=== PATIENT | male | born 1990 | race Caucasian/White ===

== ENCOUNTER 2024-07-22 08:25 | Emergency (ER) | payer SELFPAY ==
[2024-07-22 08:39] VITALS: BMI 28.0
--- NOTE | 2024-07-22 08:53 | ED.GENMED ---
History of Present Illness
General
Chief Complaint: Abdominal Pain
Source: patient
Exam Limitations: none
Time Seen by Provider: 07/22/24 08:33
Nursing documentation reviewed up to this point in time: agreed with
History of Present Illness
History of Present Illness:
Patient presents ED secondary to sudden onset of abdominal pain, associated with nausea and vomiting, which occurred while he was having bowel movement this morning. Denies fever or chills. Denies trauma. Denies recent illness. Patient was
evaluated at another ED 3 days ago for similar complaint, which also occurred during bowel movement. Patient reports having had blood work as well as normal CT scan abdomen pelvis. Patient did require receiving IV infusion of potassium, as it was
low. Patient states that he was symptom-free by the time he left ED. Since then, unfortunately, patient has not had any bowel movements. Patient takes Zoloft daily, which she has been for the past 2 years. Patient denies taking any other
medications. However, patient does admit to using marijuana, approximately twice weekly. Denies smoking. Patient admits to drinking alcohol socially.
Past History
Past History
ED Past Medical History: None
ED Past Surgical History: None
Social History
Tobacco: Non-smoker
Living: with family
Review of Systems
Review of Systems
Allergies reviewed?: Yes
All Other Systems: ROS reviewed and negative except as documented in HPI and ROS
Constitutional: Reports no symptoms; Denies fever
EENT: Reports no symptoms
Respiratory: Reports no symptoms
Cardiac: Reports no symptoms
ABD/GI: Reports abdominal pain, nausea and vomiting; Denies diarrhea
Musculoskeletal: Reports no symptoms
Skin: Reports no symptoms
Neurological: Reports no symptoms
Phy Exam
Physical Exam
Physical Exam:
Physical Exam
General: mild distress, not acutely ill. afebrile.
Head: nc/at. eomi
Neck: supple. no meningeal signs. normal posterior pharynx
Heart: s1/s2 regular rate and rhythm, no murmur.
Lungs: no acute respiratory distress. clear bilaterally
Abdomen: normal bowel sounds. not tender. no distention
Neuro: alert and oriented x 3. no focal neurological deficits
Skin: no rash
Psychiatric: well kept. interactive and cooperative
Extremities: no edema. no calf tenderness.
Course
Orders/Labs/Results
Orders:
Orders
07/22/24 08:40
HYDROmorphone [Dilaudid] 1 mg .ROUTE .STK-MED ONE
Ondansetron Injectable [Zofran] 4 mg .ROUTE .STK-MED ONE
07/22/24 08:44
EKG [Electrocardiogram (*1)] Urgent
Reason for Study: Vertigo / Dizzy
EKG- Treatment ONCE
07/22/24 08:47
Alcohol Urgent
Complete Blood Count/With Diff Urgent
Comprehensive Metabolic Panel Urgent
Lipase Urgent
Magnesium Urgent
07/22/24 08:49
0.9% Sodium Chloride 500 ml [Nss] 500 ml IV BOLUS
Haloperidol Lactate [Haldol] 2 mg IV NOW STA
Pantoprazole [Protonix IV] 40 mg IV NOW STA
07/22/24 08:51
Ondansetron Injectable [Zofran] 4 mg IV NOW STA
CR Obstruct Series W/pa Chest Urgent
Comment:
Reason For Exam: abd pain w vomiting
07/22/24 08:58
Add On- LAB Urgent
Tests Added?: alcohol level
07/22/24 09:08
Lorazepam [Ativan] 1 mg IV NOW STA
Abnormal Lab Results
07/22/24
08:47
Absolute Lymphs (auto) 1.0 L 10^3/uL
(1.2-3.4)
Neutrophils % 78.0 H %
(42.2-75.2)
Lymphocytes % 13.4 L %
(20.5-51.1)
Carbon Dioxide 19 L mmol/L
(22-30)
BUN 21 H mg/dl
(9-20)
Glucose 139 H mg/dl
(70-99)
Albumin 5.1 H g/dl
(3.5-5.0)
07/22/24 08:47
07/22/24 08:47
Vital Signs
Initial and Last Documented VS:
Initial Vital Signs
Temp Pulse Resp Pulse Ox
97.3 F 67 16 100
07/22/24 08:28 07/22/24 08:28 07/22/24 08:28 07/22/24 08:28
Last Documented Vital Signs
Temp Pulse Resp BP Pulse Ox
97.6 F 69 20 136/71 95
07/22/24 09:05 07/22/24 11:20 07/22/24 11:20 07/22/24 11:20 07/22/24 11:20
MDM/Problems Addressed
MDM/Problems Addressed:
Faxed report from recent ED visit reviewed and noted, including blood work and CT abdomen pelvis.
Patient reports significant improvement symptoms, and is without any further vomiting episodes after treatment. Repeat abdominal exam: Soft and nontender. Patient remains hemodynamically stable.
Discussed with patient in depth regarding potential diagnosis, including constipation, medication reaction, diet, as well as use of marijuana as potential etiology behind his symptoms. However, in light of patient's gastric ulcer history,
difficulty exclude gastritis versus esophagitis versus ulcer as etiology behind his symptoms. Advised PPI as an outpatient, stool softener, increase fiber intake, and patient will be referred to GI for an outpatient consultation. Advised to return
to ED with recurrent or worsening symptoms. Patient will be discharged home in stable condition, to the care of of his family.
Outpatient GI appt made for the patient on 07/25
*Critical Care Note
Total Time (30-74mins, 75-104mins- exclusive of procedures): Not Applicable
ED Attending Note
-
Portions of this chart may have been created with voice recognition software.� Occasional wrong word or��sound alike� substitutions may have occurred due to the inherent limitations of voice recognition software.
Discharge Plan
Departure
Patient Disposition: Home (Routine Discharge)
Date of Disposition: 07/22/24
Time of Disposition: 11:10
Patient with high blood pressure during this ER visit?: Yes
Condition: Good
Discharge Problem:
Abdominal pain
Instructions: Abdominal Pain
Prescriptions:
New
metoclopramide HCl [Reglan] 10 mg tablet
10 mg PO Q8HPRN PRN (Reason: nausea and vomiting) Qty: 10 0RF
No Action
escitalopram oxalate 10 mg Tablet
10 mg PO DAILY
Referrals:
Sylvester Lombardi MD [Family Provider] -
Yossi Deal MD [Active] -
Activity Restrictions/Additional Instructions:
As discussed, please follow-up with your primary care physician and/or referred GI physician for further evaluation and treatment. please consider return to ED with worsening symptoms, i.e. fever/worsening pain/vomiting. Your prescription has been
sent electronically to [facility] pharmacy in [place].
Interventions
Interventions:
*Risk Screen - Suicide Last Done: 07/22/24 08:28
*General Assessment Last Done: 07/22/24 08:28
*Neglect/Abuse Screening Last Done: 07/22/24 09:05
*ED- Fall Risk Assessment Last Done: 07/22/24 09:05
*ED COVID-19 Vaccine History Last Done: 07/22/24 09:05
*Nursing Disposition Last Done: 07/22/24 11:27
AR-Xvelsu-Sfvuibiwtl Assessment Last Done: 07/22/24 09:05
Discharge Date and Time
Discharge Date/Time: 07/22/24 11:28
Print Language: ROMANIAN
[2024-07-22] MEDS: NSS 500 IV (08:58)
[2024-07-22] MEDS: HALDOL 2 MG IV (08:58)
[2024-07-22] MEDS: PROTONIX IV 40 MG IV (08:58)
[2024-07-22 09:02] VITALS: BP 141/89
[2024-07-22 09:02] LABS: % Basophils 0.8 % (0-2); % Eosinophils 1.2 % (0-6); % Immature Granulocytes 0.3 % (0-0.5); % Lymphocytes 13.4 % (20.5-51.1); % Monocytes 6.3 % (1.7-9.3); Absolute Basophils 0.1 10^3/uL (0-0.2); Absolute Eosinophils 0.1 10^3/uL (0-0.7); Absolute Monocytes 0.5 10^3/uL (0.1-0.6); Absolute Neutrophils 6.1 10^3/uL (1.4-6.5); Hemoglobin 16.1 g/dL (13.0-18.0); Mean Corpuscular Hgb 29.9 pg (27.0-31.0); Mean Corpuscular Volume 85.3 fL (80.0-94.0); Mean Platelet Volume 10.2 fL (7.4-10.4); Nucleated Red Blood Cells % 0 % (-); Platelet Count 315 10^3/uL (130-400); Red Blood Cell Count 5.39 10^6/uL (4.70-6.10); White Blood Cell Count 7.8 10^3/uL (4.8-10.8)
[2024-07-22 09:05] VITALS: BP 141/89
--- NOTE | 2024-07-22 09:09 | EDRN ---
Dr. Soria currently at the pts bedside
[2024-07-22] MEDS: ATIVAN 1 MG IV (09:12)
[2024-07-22 09:26] LABS: ALT (SGPT) 36 U/L (0-50); AST (SGOT) 29 U/L (17-59); Albumin 5.1 g/dl (3.5-5.0); Alkaline Phosphatase 89 U/L (38-126); Blood Urea Nitrogen 21 mg/dl (9-20); Calcium 9.9 mg/dl (8.4-10.2); Carbon Dioxide 19 mmol/L (22-30); Chloride 107 mmol/L (98-107); Estimated Creatinine Clearance 96 ml/min; Glucose 139 mg/dl (70-99); Lipase 164 U/L (23-300); Magnesium 1.9 mg/dl (1.6-2.3); Potassium 4.7 mmol/L (3.5-5.1); Sodium 143 mmol/L (135-145); Total Bilirubin 0.8 mg/dl (0.2-1.3); Total Protein 7.8 g/dl (6.3-8.2); eGFR > 60.00
[2024-07-22 09:27] LABS: Alcohol None Detected
[2024-07-22 10:00] VITALS: BP 128/69
--- NOTE | 2024-07-22 10:56 | EDRN ---
Dr. Soria currently at the pts bedside
[2024-07-22 11:20] VITALS: BP 136/71
== END 2024-07-22 11:28 | disposition home or self-care (01) ==
LOC: EMR 08:25
PROVIDERS: EMERGENCY PHYSICIAN Emergency Medicine; FAMILY PHYSICIAN Family Medicine
DX: R10.9 Unspecified abdominal pain (principal); R03.0 Elevated blood-pressure reading, without diagnosis of hypertension
CPT/HCPCS: 99285; 96374; 96375 ×3; 96361; 74022; 80053; 82077; 83690; 83735; 85025; 93005